=== PATIENT | female | born 1950 | race Two or more races ===

== ENCOUNTER 2023-12-13 19:25 | Inpatient (IN) | payer OTHER ==
[~2023-12-13] VITALS: Ht 154.9 cm; Wt 55.3 kg
[2023-12-13 20:00] VITALS: BP 107/57; TEMP 97.3; O2SAT 100
[2023-12-13] MEDS ORDERED: MAGNESIUM HYDROXIDE 30 ML UDC PO PRN (22:30)
[2023-12-13] MEDS ORDERED: Z GUARD REMEDY 4 OZ OINT TP PRN (22:30)
[2023-12-13] MEDS ORDERED: APIX2.5T PO (22:38)
[2023-12-13] MEDS ORDERED: ATOR80TA PO (22:38)
[2023-12-13] MEDS ORDERED: CLOP75TA15 PO (22:38)
[2023-12-13] MEDS ORDERED: GABA100C PO (22:49)
[2023-12-13] MEDS ORDERED: POLY17PO4 PO (22:49)
[2023-12-13] MEDS ORDERED: FURO-144 PO (22:49)
[2023-12-13] MEDS ORDERED: ACET-868 PO (22:49)
[2023-12-13] MEDS ORDERED: METO50TA16 PO (22:49)
[2023-12-13] MEDS ORDERED: SENN-18 PO (22:49)
[2023-12-13] MEDS ORDERED: PANT40TA49 PO (22:49)
[2023-12-14] VITALS: BP 112/64; TEMP 98.5; O2SAT 100
[2023-12-14 04:00] VITALS: BP 110/59; TEMP 98; O2SAT 99
[2023-12-14 08:00] VITALS: BP 105/65; TEMP 98.7; O2SAT 95
[2023-12-14] MEDS: PANTOPRAZOLE 40 MG VIAL IV SCH (08:31)
[2023-12-14 12:00] VITALS: BP 121/88; TEMP 97.9; O2SAT 100
[2023-12-14] MEDS ORDERED: EMPA25TA PO (14:40)
[2023-12-14] MEDS ORDERED: NITR0.4T48 SL (14:40)
[2023-12-14] MEDS ORDERED: DICL100G34 TP (14:40)
[2023-12-14] MEDS ORDERED: NALT50TA PO (14:40)
[2023-12-14] MEDS ORDERED: FAMO20TA8 PO (14:40)
[2023-12-14] MEDS ORDERED: METO-357 PO (14:40)
[2023-12-14 14:56] LABS: BASOPHILS % (AUTO) 0.7 % (0.0-2.0); EOSINOPHILS # (AUTO) 0.1 K/uL (0.0-0.7); EOSINOPHILS % (AUTO) 2.4 % (0.0-6.0); HEMATOCRIT 29 % (33-45); HEMOGLOBIN 9.1 g/dL (11.5-14.8); LYMPHOCYTES # (AUTO) 1.2 K/uL (0.8-4.8); LYMPHOCYTES % (AUTO) 23.3 % (20.0-44.0); MEAN CORPUSCULAR HEMOGLOBIN 28 PG (26.0-33.0); MEAN CORPUSCULAR HGB CONC 32 g/dl (31.0-36.0); MEAN CORPUSCULAR VOLUME 87 fL (82-100); MONOCYTES # (AUTO) 0.4 K/uL (0.1-1.30); MONOCYTES % (AUTO) 7.6 % (2.0-12.0); NEUTROPHILS # (AUTO) 3.3 K/uL (1.8-8.9); PLATELET COUNT (AUTO) 157 K/uL (150-450); RED BLOOD CELL COUNT(AUTO) 3.28 MIL/uL (4.0-5.2); RED CELL DISTRIBUTION WIDTH 18.8 % (11.5-15.0); WHITE BLOOD COUNT (AUTO) 5.1 K/uL (4.3-11.0)
[2023-12-14 15:08] LABS: MAGNESIUM 2.7 mg/dL (1.8-2.4); PHOSPHORUS 4.5 mg/dL (2.5-4.9)
[2023-12-14 15:18] LABS: CALCIUM, SERUM 8.9 mg/dL (8.5-10.1); CARBON DIOXIDE 26 mmol/L (21-32); CHLORIDE 97 mmol/L (98-107); CREATININE 1.7 mg/dL (0.6-1.3); GLUCOSE 73 mg/dL (74-106); POTASSIUM 4.8 mmol/L (3.5-5.1); SODIUM SERUM 133 mmol/L (136-145); UREA NITROGEN, BLOOD 24 mg/dL (7-18)
[2023-12-14 15:30] LABS: ALANINE AMINOTRANSFERASE 31 U/L (12-78); ALBUMIN 3.4 g/dL (3.4-5.0); ALKALINE PHOSPHATASE 80 U/L (46-116); ASPARTATE AMINOTRANSFERASE 41 U/L (15-37); BILIRUBIN,TOTAL 1.1 mg/dL (0.2-1.0); TOTAL PROTEIN, SERUM 7.1 g/dL (6.4-8.2)
[2023-12-14 16:00] VITALS: BP 108/69; TEMP 97.1; O2SAT 95
[2023-12-14 20:00] VITALS: BP 110/69; TEMP 97.5; O2SAT 97
[2023-12-14] MEDS: HYDROMORPHONE 1 MG/1 ML DISP.SYRIN IV PRN (22:26)
[2023-12-15] VITALS: BP 112/68; TEMP 97.5; O2SAT 97
[2023-12-15 04:00] VITALS: BP 112/83; TEMP 98.5; O2SAT 98
[2023-12-15] MEDS: ACETAMINOPHEN 325 MG TABLET PO PRN (07:48)
[2023-12-15 07:54] LABS: BASOPHILS % (AUTO) 0.7 % (0.0-2.0); EOSINOPHILS # (AUTO) 0.3 K/uL (0.0-0.7); EOSINOPHILS % (AUTO) 7.2 % (0.0-6.0); HEMATOCRIT 25 % (33-45); LYMPHOCYTES % (AUTO) 22.3 % (20.0-44.0); MEAN CORPUSCULAR HEMOGLOBIN 27 PG (26.0-33.0); MEAN CORPUSCULAR HGB CONC 32 g/dl (31.0-36.0); MEAN CORPUSCULAR VOLUME 86 fL (82-100); MONOCYTES # (AUTO) 0.5 K/uL (0.1-1.30); MONOCYTES % (AUTO) 11.5 % (2.0-12.0); NEUTROPHILS # (AUTO) 2.5 K/uL (1.8-8.9); NEUTROPHILS % (AUTO) 58.3 % (43.0-81.0); PLATELET COUNT (AUTO) 141 K/uL (150-450); RED BLOOD CELL COUNT(AUTO) 2.93 MIL/uL (4.0-5.2); RED CELL DISTRIBUTION WIDTH 18.5 % (11.5-15.0); WHITE BLOOD COUNT (AUTO) 4.3 K/uL (4.3-11.0)
[2023-12-15 08:00] VITALS: BP 111/81; TEMP 97.9; O2SAT 98
[2023-12-15 08:13] LABS: ALANINE AMINOTRANSFERASE 27 U/L (12-78); ALBUMIN 2.8 g/dL (3.4-5.0); ALKALINE PHOSPHATASE 72 U/L (46-116); ASPARTATE AMINOTRANSFERASE 31 U/L (15-37); BILIRUBIN,TOTAL 0.8 mg/dL (0.2-1.0); CALCIUM, SERUM 8.2 mg/dL (8.5-10.1); CARBON DIOXIDE 28 mmol/L (21-32); CHLORIDE 101 mmol/L (98-107); CREATININE 1.4 mg/dL (0.6-1.3); GLUCOSE 80 mg/dL (74-106); POTASSIUM 4.3 mmol/L (3.5-5.1); SODIUM SERUM 133 mmol/L (136-145); TOTAL PROTEIN, SERUM 6.1 g/dL (6.4-8.2); UREA NITROGEN, BLOOD 20 mg/dL (7-18)
[2023-12-15 08:24] LABS: MAGNESIUM 2.5 mg/dL (1.8-2.4); PHOSPHORUS 3.9 mg/dL (2.5-4.9)
[2023-12-15] MEDS ORDERED: Medication Not On Formulary EA (Naltrexone Hcl 50 MG) PO SCH (09:00)
[2023-12-15] MEDS ORDERED: FUROSEMIDE 20 MG/2 ML VIAL IV SCH (09:00)
[2023-12-15] MEDS: FAMOTIDINE (20 MG) 20 MG TABLET PO SCH (09:41)
[2023-12-15] MEDS: CLOPIDOGREL BISULFATE 75 MG TABLET PO SCH (09:41)
[2023-12-15] MEDS: APIXABAN 2.5 MG TABLET PO SCH (09:41)
[2023-12-15] MEDS: METOPROLOL SUCCINATE 50 MG TAB.SR.24H PO SCH (09:42)
[2023-12-15 09:53] LABS: THYROID STIMULATING HORMONE 2.87 uIU/mL (0.358-3.74)
[2023-12-15] MEDS: EMPAGLIFLOZIN 25 MG TABLET PO SCH (10:05)
[2023-12-15 12:00] VITALS: BP 106/72; TEMP 97.9; O2SAT 100
[2023-12-15] MEDS: IV NS 0.9% 1,000 ML IV PRN (15:54)
[2023-12-15 16:00] VITALS: BP 99/59; TEMP 97.7; O2SAT 98
[2023-12-15 19:41] LABS: CREATININE, URINE 58.5 MG/DL (30.0-125.0); URINE TOTAL PROTEIN 16.3 mg/dL (0-11.9)
[2023-12-15 20:00] VITALS: BP 101/71; TEMP 98.1; O2SAT 99
[2023-12-15 20:41] LABS: APPEARANCE,URINE CLEAR (CLEAR); BILIRUBIN,URINE NEGATIVE (NEGATIVE); BLOOD, URINE NEGATIVE Ery/uL (NEGATIVE); COLOR,URINE YELLOW (YELLOW); KETONES,URINE NEGATIVE (NEGATIVE); LEUKOCYTE ESTERASE ,URINE TRACE (NEGATIVE); NITRITE, URINE NEGATIVE (NEGATIVE); PROTEIN,URINE NEGATIVE (NEGATIVE); UGLUCOSE 3+ mg/dL (NEGATIVE)
[2023-12-15 21:34] LABS: ADD URINE CULTURE NO; BACTERIA,URINE 1+ /HPF (None Seen); MUCUS,URINE Few /LPF (None Seen); RBC,URINE 0-2 /HPF (0-2)
[2023-12-15 21:41] LABS: EOSINOPHIL,URINE RARE
[2023-12-15] MEDS: GABAPENTIN 100 MG CAPSULE PO SCH (22:37)
[2023-12-16] VITALS: BP 96/73; TEMP 98; O2SAT 98
[2023-12-16 04:00] VITALS: BP 101/60; TEMP 98.1; O2SAT 98
[2023-12-16 07:26] LABS: BASOPHILS % (AUTO) 0.7 % (0.0-2.0); EOSINOPHILS # (AUTO) 0.3 K/uL (0.0-0.7); EOSINOPHILS % (AUTO) 7.6 % (0.0-6.0); HEMATOCRIT 26 % (33-45); HEMOGLOBIN 8.2 g/dL (11.5-14.8); LYMPHOCYTES # (AUTO) 0.8 K/uL (0.8-4.8); LYMPHOCYTES % (AUTO) 20.6 % (20.0-44.0); MEAN CORPUSCULAR HEMOGLOBIN 28 PG (26.0-33.0); MEAN CORPUSCULAR HGB CONC 32 g/dl (31.0-36.0); MEAN CORPUSCULAR VOLUME 87 fL (82-100); MONOCYTES # (AUTO) 0.5 K/uL (0.1-1.30); MONOCYTES % (AUTO) 12.1 % (2.0-12.0); NEUTROPHILS # (AUTO) 2.2 K/uL (1.8-8.9); PLATELET COUNT (AUTO) 141 K/uL (150-450); RED BLOOD CELL COUNT(AUTO) 2.98 MIL/uL (4.0-5.2); RED CELL DISTRIBUTION WIDTH 18.8 % (11.5-15.0); WHITE BLOOD COUNT (AUTO) 3.8 K/uL (4.3-11.0)
[2023-12-16 07:45] LABS: CREATINE KINASE, TOTAL 110 U/L (26-192)
[2023-12-16 07:47] LABS: ALANINE AMINOTRANSFERASE 30 U/L (12-78); ALBUMIN 2.9 g/dL (3.4-5.0); ALKALINE PHOSPHATASE 76 U/L (46-116); ASPARTATE AMINOTRANSFERASE 25 U/L (15-37); BILIRUBIN,TOTAL 0.5 mg/dL (0.2-1.0); CALCIUM, SERUM 8.6 mg/dL (8.5-10.1); CARBON DIOXIDE 23 mmol/L (21-32); CHLORIDE 102 mmol/L (98-107); CREATININE 1.4 mg/dL (0.6-1.3); GLUCOSE 102 mg/dL (74-106); MAGNESIUM 2.7 mg/dL (1.8-2.4); PHOSPHORUS 3.9 mg/dL (2.5-4.9); SODIUM SERUM 135 mmol/L (136-145); TOTAL PROTEIN, SERUM 6.4 g/dL (6.4-8.2); UREA NITROGEN, BLOOD 17 mg/dL (7-18)
[2023-12-16 08:00] VITALS: BP 111/78; TEMP 97.6; O2SAT 95
[2023-12-16] MEDS: ATORVASTATIN 40 MG TABLET PO SCH (08:37)
[2023-12-16] MEDS: PANTOPRAZOLE 40 MG TABLET.DR PO SCH (08:37)
[2023-12-16 12:00] VITALS: BP 111/82; TEMP 97.7; O2SAT 98
[2023-12-16] MEDS: METOPROLOL TARTRATE 50 MG TABLET PO ONE (13:10)
[2023-12-16] MEDS ORDERED: CT SWABBABLE VALVE TRANS SET 1 EA INFUS.SET MC ONE (14:52)
[2023-12-16] MEDS ORDERED: IV NS 0.9% 250 ML IV ONE (14:52)
[2023-12-16] MEDS ORDERED: IOHEXOL-350 100 ML VIAL IV ONE (14:52)
[2023-12-16] MEDS ORDERED: METOPROLOL TARTRATE INJ 5 MG/5 ML AMPUL ONE (15:09)
[2023-12-16] MEDS ORDERED: NITROGLYCERIN 0.4 MG/TAB BOTTLE ONE (15:09)
[2023-12-16] MEDS: METOPROLOL TARTRATE INJ 5 MG/5 ML AMPUL IVP PRN ×2 (15:18→15:20)
[2023-12-16] MEDS: NITROGLYCERIN 0.4 MG/TAB BOTTLE SL ONE (15:39)
[2023-12-16 16:00] VITALS: BP 106/70; TEMP 97.5; O2SAT 99
[2023-12-16] MEDS: PANTOPRAZOLE 40 MG VIAL IV SCH (19:58)
[2023-12-16 20:00] VITALS: BP 108/62; TEMP 97.3; O2SAT 98
[2023-12-16] MEDS: CEFEPIME 1 GM in IV D5W 50 ML IV SCH (20:20)
[2023-12-17] VITALS: BP 106/86; TEMP 97.6; O2SAT 100
[2023-12-17 06:29] VITALS: BP_SYST 103; BP_SYST 105; BP_SYST 94; BP_DIAS 64; BP_DIAS 71; BP_DIAS 75
[2023-12-17 08:00] VITALS: BP 112/64; TEMP 97.9; O2SAT 98
[2023-12-17 10:08] LABS: *SPE A/G RATIO 0.9 (0.7-1.7); *SPE ALPHA-1-GLOBULIN 0.3 g/dL (0.0-0.4); *SPE ALPHA-2-GLOBULIN 0.7 g/dL (0.4-1.0); *SPE BETA GLOBULIN 0.8 g/dL (0.7-1.3); *SPE GLOBULIN, TOTAL 3.2 g/dL (2.2-3.9); *SPE M-SPIKE Not Observed g/dL (Not Observed); *SPE PROTEIN TOTAL 6.2 g/dL (6.0-8.5); *SPEGAMMA GLOBULIN 1.3 g/dL (0.4-1.8)
[2023-12-17 12:00] VITALS: BP 94/62; TEMP 98.5; O2SAT 97
[2023-12-17 13:09] LABS: PTH, INTACT 88 pg/mL (15-65)
[2023-12-17 16:00] VITALS: BP 102/68; TEMP 98.9; O2SAT 100
[2023-12-17 18:04] LABS: CALCIUM, SERUM 8.7 mg/dL (8.5-10.1); CARBON DIOXIDE 22 mmol/L (21-32); CHLORIDE 100 mmol/L (98-107); CREATININE 1.4 mg/dL (0.6-1.3); GLUCOSE 128 mg/dL (74-106); UREA NITROGEN, BLOOD 17 mg/dL (7-18)
[2023-12-17 20:00] VITALS: BP 104/59; TEMP 97.5; O2SAT 98
[2023-12-17] MEDS: MAG HYDROX/AL HYDROX/SIMETH 30 ML UDC PO PRN (20:20)
[2023-12-17 21:03] LABS: BASOPHILS % (AUTO) 0.5 % (0.0-2.0); EOSINOPHILS # (AUTO) 0.1 K/uL (0.0-0.7); EOSINOPHILS % (AUTO) 2.9 % (0.0-6.0); HEMATOCRIT 32 % (33-45); HEMOGLOBIN 9.8 g/dL (11.5-14.8); LYMPHOCYTES % (AUTO) 21.8 % (20.0-44.0); MEAN CORPUSCULAR HEMOGLOBIN 27 PG (26.0-33.0); MEAN CORPUSCULAR HGB CONC 31 g/dl (31.0-36.0); MEAN CORPUSCULAR VOLUME 89 fL (82-100); MONOCYTES # (AUTO) 0.6 K/uL (0.1-1.30); MONOCYTES % (AUTO) 13.5 % (2.0-12.0); NEUTROPHILS # (AUTO) 2.9 K/uL (1.8-8.9); NEUTROPHILS % (AUTO) 61.3 % (43.0-81.0); PLATELET COUNT (AUTO) 153 K/uL (150-450); RED BLOOD CELL COUNT(AUTO) 3.58 MIL/uL (4.0-5.2); RED CELL DISTRIBUTION WIDTH 19.3 % (11.5-15.0); WHITE BLOOD COUNT (AUTO) 4.8 K/uL (4.3-11.0)
[2023-12-17 21:29] LABS: SODIUM SERUM 133 mmol/L (136-145)
[2023-12-17 21:30] LABS: POTASSIUM 4.9 mmol/L (3.5-5.1)
[2023-12-17] MEDS ORDERED: ALBUTEROL FS 2.5 MG/0.5 ML VIAL.NEB NEB PRN (23:30)
[2023-12-18] VITALS (11 sets, daily range): BP systolic 102–129; BP diastolic 63–84; TEMP 97–97.9; O2SAT 95–100
[2023-12-18 08:02] LABS: BASOPHILS % (AUTO) 0.9 % (0.0-2.0); EOSINOPHILS # (AUTO) 0.1 K/uL (0.0-0.7); EOSINOPHILS % (AUTO) 1.9 % (0.0-6.0); HEMATOCRIT 30 % (33-45); HEMOGLOBIN 8.8 g/dL (11.5-14.8); LYMPHOCYTES % (AUTO) 24.8 % (20.0-44.0); MEAN CORPUSCULAR HEMOGLOBIN 27 PG (26.0-33.0); MEAN CORPUSCULAR HGB CONC 29 g/dl (31.0-36.0); MEAN CORPUSCULAR VOLUME 95 fL (82-100); MONOCYTES # (AUTO) 0.5 K/uL (0.1-1.30); MONOCYTES % (AUTO) 13.2 % (2.0-12.0); NEUTROPHILS # (AUTO) 2.3 K/uL (1.8-8.9); NEUTROPHILS % (AUTO) 59.2 % (43.0-81.0); PLATELET COUNT (AUTO) 144 K/uL (150-450); WHITE BLOOD COUNT (AUTO) 3.8 K/uL (4.3-11.0)
[2023-12-18] MEDS ORDERED: NITROGLYCERIN 30 GM TUBE TP PRN (09:00)
[2023-12-18 09:06] LABS: ALANINE AMINOTRANSFERASE 34 U/L (12-78); ALBUMIN 2.7 g/dL (3.4-5.0); ALKALINE PHOSPHATASE 75 U/L (46-116); ASPARTATE AMINOTRANSFERASE 27 U/L (15-37); BILIRUBIN,TOTAL 0.8 mg/dL (0.2-1.0); CARBON DIOXIDE 17 mmol/L (21-32); CHLORIDE 101 mmol/L (98-107); CREATININE 1.4 mg/dL (0.6-1.3); GLUCOSE 96 mg/dL (74-106); MAGNESIUM 2.6 mg/dL (1.8-2.4); NT-PRO BNP 7793 pg/mL (0-125); POTASSIUM 4.8 mmol/L (3.5-5.1); SODIUM SERUM 130 mmol/L (136-145); TOTAL PROTEIN, SERUM 6.7 g/dL (6.4-8.2)
[2023-12-18] MEDS: ENSURE ENLIVE 237 ML LIQUID (VANILLA) PO SCH (09:16)
[2023-12-18 09:24] LABS: CALCIUM, SERUM 8.7 mg/dL (8.5-10.1); UREA NITROGEN, BLOOD 19 mg/dL (7-18)
[2023-12-18] MEDS ORDERED: NITROGLYCERIN PACKET 1 GM PACKET TOP PRN (10:00)
[2023-12-18] MEDS ORDERED: DIATR MEGLU/DIATRIZOATE SODIUM 30 ML BOTTLE (GASTROGRAPHIN) ONE (10:05)
[2023-12-18] MEDS: DICYCLOMINE HCL 10 MG CAPSULE PO SCH (12:00)
[2023-12-18] MEDS: ONDANSETRON HCL/PF 4 MG/2 ML VIAL IVP PRN (12:17)
[2023-12-18] MEDS: FUROSEMIDE 40 MG/4 ML VIAL IV SCH (15:26)
[2023-12-18 15:29] LABS: LACTIC ACID 2.7 mmol/L (0.4-2.0)
[2023-12-18] MEDS: IV NS 0.9% 1,000 ML IV SCH (18:27)
[2023-12-18 18:41] LABS: BILIRUBIN,DIRECT 0.3 mg/dL (0.0-0.2)
[2023-12-18] MEDS: ZOSYN IVPB 2.25 G in IV D5W 50ml IV SCH (18:50)
[2023-12-18] MEDS: PANTOPRAZOLE 40 MG VIAL IV SCH (21:14)
[2023-12-18] MEDS ORDERED: IOHEXOL-350 100 ML VIAL IV ONE (21:51)
[2023-12-18] MEDS ORDERED: IV NS 0.9% 500 ML IV ONE (21:51)
[2023-12-18] MEDS: SUCRALFATE 1 G/10 ML UDC GT SCH (23:15)
[2023-12-19] VITALS: BP 102/58; TEMP 97.9; O2SAT 97
[2023-12-19 01:00] VITALS: BP 102/58; O2SAT 97
[2023-12-19 04:00] VITALS: BP 115/81; TEMP 98.1; O2SAT 97
[2023-12-19 04:16] LABS: BASOPHILS % (AUTO) 0.9 % (0.0-2.0); EOSINOPHILS # (AUTO) 0.1 K/uL (0.0-0.7); EOSINOPHILS % (AUTO) 2.5 % (0.0-6.0); HEMATOCRIT 26 % (33-45); HEMOGLOBIN 8.2 g/dL (11.5-14.8); LYMPHOCYTES # (AUTO) 0.8 K/uL (0.8-4.8); LYMPHOCYTES % (AUTO) 19.6 % (20.0-44.0); MEAN CORPUSCULAR HEMOGLOBIN 27 PG (26.0-33.0); MEAN CORPUSCULAR HGB CONC 32 g/dl (31.0-36.0); MEAN CORPUSCULAR VOLUME 86 fL (82-100); MONOCYTES # (AUTO) 0.4 K/uL (0.1-1.30); MONOCYTES % (AUTO) 9.6 % (2.0-12.0); NEUTROPHILS # (AUTO) 2.6 K/uL (1.8-8.9); NEUTROPHILS % (AUTO) 67.4 % (43.0-81.0); PLATELET COUNT (AUTO) 139 K/uL (150-450); RED BLOOD CELL COUNT(AUTO) 3.01 MIL/uL (4.0-5.2); WHITE BLOOD COUNT (AUTO) 3.9 K/uL (4.3-11.0)
[2023-12-19 08:00] VITALS: BP 112/79; TEMP 97.6; O2SAT 97
[2023-12-19 08:26] LABS: ALANINE AMINOTRANSFERASE 37 U/L (12-78); ALKALINE PHOSPHATASE 69 U/L (46-116); ASPARTATE AMINOTRANSFERASE 29 U/L (15-37); BILIRUBIN,TOTAL 0.9 mg/dL (0.2-1.0); CALCIUM, SERUM 8.7 mg/dL (8.5-10.1); CARBON DIOXIDE 21 mmol/L (21-32); CHLORIDE 101 mmol/L (98-107); CREATININE 1.7 mg/dL (0.6-1.3); GLUCOSE 97 mg/dL (74-106); MAGNESIUM 2.1 mg/dL (1.8-2.4); PHOSPHORUS 4.4 mg/dL (2.5-4.9); POTASSIUM 3.8 mmol/L (3.5-5.1); SODIUM SERUM 135 mmol/L (136-145); TOTAL PROTEIN, SERUM 6.5 g/dL (6.4-8.2); UREA NITROGEN, BLOOD 21 mg/dL (7-18)
[2023-12-19 12:00] VITALS: BP 131/83; TEMP 98.1; O2SAT 97
[2023-12-19] MEDS ORDERED: ATORVASTATIN 40 MG TABLET PO SCH (21:00)
== END 2023-12-19 16:50 | disposition home or self-care (01) | DRG 48 ==
LOC: TELE1 19:27 → ICU 12-18 17:37 → TELE-TD 12-19 04:12 → TELE1 12-19 15:02
DX: G90.8 Other disorders of autonomic nervous system (principal); I21.A1 Myocardial infarction type 2; N17.9 Acute kidney failure, unspecified; I13.0 Hypertensive heart and chronic kidney disease with heart failure and stage 1 through stage 4 chronic kidney disease, or unspecified chronic kidney disease; I50.42 Chronic combined systolic (congestive) and diastolic (congestive) heart failure; R18.8 Other ascites; D64.9 Anemia, unspecified; I48.91 Unspecified atrial fibrillation; N18.9 Chronic kidney disease, unspecified; E78.5 Hyperlipidemia, unspecified; Z79.01 Long term (current) use of anticoagulants; Z90.49 Acquired absence of other specified parts of digestive tract; Z95.0 Presence of cardiac pacemaker; Z95.5 Presence of coronary angioplasty implant and graft; I25.2 Old myocardial infarction; I25.10 Atherosclerotic heart disease of native coronary artery without angina pectoris; K57.30 Diverticulosis of large intestine without perforation or abscess without bleeding; Z76.5 Malingerer [conscious simulation]; Z88.5 Allergy status to narcotic agent; K21.9 Gastro-esophageal reflux disease without esophagitis; R93.5 Abnormal findings on diagnostic imaging of other abdominal regions, including retroperitoneum; R10.9 Unspecified abdominal pain; R74.01 Elevation of levels of liver transaminase levels; N13.9 Obstructive and reflux uropathy, unspecified
CPT/HCPCS: 36415; 71045-TC; 74018; 75574; 76700-TC; 80048-TC; 80053-TC; 80061-TC; 81001; 82248-TC; 82550-TC; 82570-TC; 82728-TC; 82962-TC; 83540-TC; 83605-TC; 83690-TC; 83735-TC; 83880; 83970; 84100-TC; 84155; 84165; 84300-TC; 84439-TC; 84443-TC; 84484-TC; 85025-TC; 93307-TC; 97110-TC; 97112-TC; 97116-TC; 97530-TC; A4223; G0378; J0692; J1170; J1940; J2405; J2470; J2543; J3490; J7030; J7040; J7050; J7060; Q9963; Q9967

== ENCOUNTER 2024-05-18 15:44 | Inpatient (IN) | payer OTHER ==
[~2024-05-18] VITALS: Ht 160 cm; Wt 62.1 kg
[~2024-05-18 15:44] MED LIST: APIX2.5T PO; ATOR80TA PO; CLOP75TA15 PO; DICL100G34 TP; EMPA25TA PO; FAMO20TA8 PO; FURO-144 PO; GABA100C PO; METO-357 PO; NALT50TA PO; NITR0.4T48 SL; SENN-18 PO
[2024-05-18 16:54] LABS: LYMPHOCYTES # (AUTO) 0.7 K/uL (0.8-4.8); MONOCYTES # (AUTO) 0.4 K/uL (0.1-1.30); NEUTROPHILS # (AUTO) 3.2 K/uL (1.8-8.9); WHITE BLOOD COUNT (AUTO) 4.3 K/uL (4.3-11.0)
[2024-05-18 17:02] LABS: CALCIUM, SERUM 8.9 mg/dL (8.5-10.1); CARBON DIOXIDE 26 mmol/L (21-32); CHLORIDE 91 mmol/L (98-107); CREATININE 2.6 mg/dL (0.6-1.3); GLUCOSE 160 mg/dL (74-106); SODIUM SERUM 130 mmol/L (136-145); UREA NITROGEN, BLOOD 27 mg/dL (7-18)
[2024-05-18 17:03] LABS: BASOPHILS % (AUTO) 0.5 % (0.0-2.0); EOSINOPHILS % (AUTO) 0.9 % (0.0-6.0); HEMATOCRIT 36 % (33-45); LYMPHOCYTES % (AUTO) 15.4 % (20.0-44.0); MEAN CORPUSCULAR HEMOGLOBIN 37 PG (26.0-33.0); MEAN CORPUSCULAR HGB CONC 33 g/dl (31.0-36.0); MEAN CORPUSCULAR VOLUME 112 fL (82-100); MONOCYTES % (AUTO) 10.2 % (2.0-12.0); RED BLOOD CELL COUNT(AUTO) 3.26 MIL/uL (4.0-5.2); RED CELL DISTRIBUTION WIDTH 20.4 % (11.5-15.0)
[2024-05-18 17:24] LABS: PLATELET COUNT (AUTO) 31 K/uL (150-450)
[2024-05-18 17:43] LABS: BASOPHILS % (MANUAL) 0 % (0.0-2.0); EOSINOPHILS % (MANUAL) 1 % (0-4); LYMPHOCYTES % (MANUAL) 16 % (16-48); MONOCYTES % (MANUAL) 7 % (0-11.0); NEUTROPHILS % (MANUAL) 79 (42-76); PLATELET ESTIMATE DECREASED
[2024-05-18 17:44] LABS: ANISOCYTOSIS 2+
[2024-05-18] MEDS ORDERED: BUME1TAB8 PO (19:11)
[2024-05-18] MEDS ORDERED: DICY10CA37 PO (19:11)
[2024-05-18] MEDS ORDERED: EMPA10TA PO (19:11)
[2024-05-18] MEDS ORDERED: MULT-754 PO (19:11)
[2024-05-18] MEDS ORDERED: PSYL660P17 PO (19:11)
[2024-05-18] MEDS ORDERED: POLY17PO4 PO (19:11)
[2024-05-18] MEDS ORDERED: PANT40TA49 PO (19:11)
[2024-05-18] MEDS ORDERED: MIRT-90 PO (19:11)
[2024-05-18] MEDS ORDERED: MAGNESIUM HYDROXIDE 30 ML UDC PO PRN (19:30)
[2024-05-18] MEDS ORDERED: MIDODRINE HCL (5MG) 5 MG TABLET ONE (20:07)
[2024-05-18] MEDS: MIDODRINE HCL (5MG) 5 MG TABLET PO ONE (20:09)
[2024-05-18] MEDS ORDERED: ACETAMINOPHEN 325 MG TABLET ONE (21:40)
[2024-05-18] MEDS: ACETAMINOPHEN 325 MG TABLET PO PRN (21:46)
[2024-05-19] VITALS: BP 99/77; TEMP 97; O2SAT 100
[2024-05-19 04:00] VITALS: BP 93/70; TEMP 97; O2SAT 100
[2024-05-19 08:00] VITALS: BP 99/73; TEMP 98.1; O2SAT 100
[2024-05-19] MEDS: PANTOPRAZOLE 40 MG VIAL IV SCH (08:07)
[2024-05-19] MEDS: MIDODRINE HCL (5MG) 5 MG TABLET PO SCH (08:18)
[2024-05-19 09:08] LABS: CALCIUM, SERUM 9.1 mg/dL (8.5-10.1); CREATININE 2.7 mg/dL (0.6-1.3); MAGNESIUM 2.3 mg/dL (1.8-2.4); PHOSPHORUS 4.3 mg/dL (2.5-4.9)
[2024-05-19 09:14] LABS: THYROID STIMULATING HORMONE 32.24 uIU/mL (0.358-3.74)
[2024-05-19 09:26] LABS: BASOPHILS % (AUTO) 0.6 % (0.0-2.0); EOSINOPHILS # (AUTO) 0.1 K/uL (0.0-0.7); EOSINOPHILS % (AUTO) 1.4 % (0.0-6.0); HEMATOCRIT 37 % (33-45); HEMOGLOBIN 12.2 g/dL (11.5-14.8); LYMPHOCYTES # (AUTO) 0.8 K/uL (0.8-4.8); LYMPHOCYTES % (AUTO) 20.3 % (20.0-44.0); MEAN CORPUSCULAR HEMOGLOBIN 37 PG (26.0-33.0); MEAN CORPUSCULAR HGB CONC 33 g/dl (31.0-36.0); MEAN CORPUSCULAR VOLUME 111 fL (82-100); MONOCYTES # (AUTO) 0.8 K/uL (0.1-1.30); NEUTROPHILS # (AUTO) 2.2 K/uL (1.8-8.9); NEUTROPHILS % (AUTO) 57.7 % (43.0-81.0); RED BLOOD CELL COUNT(AUTO) 3.29 MIL/uL (4.0-5.2); RED CELL DISTRIBUTION WIDTH 20.3 % (11.5-15.0); WHITE BLOOD COUNT (AUTO) 3.8 K/uL (4.3-11.0)
[2024-05-19 09:28] LABS: PLATELET COUNT (AUTO) 38 K/uL (150-450)
[2024-05-19 11:01] LABS: EOSINOPHILS % (MANUAL) 1 % (0-4); LYMPHOCYTES % (MANUAL) 21 % (16-48); MONOCYTES % (MANUAL) 14 % (0-11.0)
[2024-05-19 11:02] LABS: ANISOCYTOSIS 2+; NEUTROPHILS % (MANUAL) 64 (42-76); PLATELET ESTIMATE DECREASED; TARGET CELLS 1+
[2024-05-19 12:00] VITALS: BP 101/68; TEMP 97.3; O2SAT 100
[2024-05-19 16:00] VITALS: BP 101/85; TEMP 97.9; O2SAT 97
[2024-05-19 20:00] VITALS: BP 90/62; TEMP 97.9; O2SAT 100
[2024-05-20] VITALS: BP 110/79; TEMP 97; O2SAT 100
[2024-05-20 02:29] LABS: BASOPHILS % (AUTO) 0.3 % (0.0-2.0); EOSINOPHILS # (AUTO) 0.1 K/uL (0.0-0.7); EOSINOPHILS % (AUTO) 2.6 % (0.0-6.0); HEMATOCRIT 34 % (33-45); HEMOGLOBIN 11.6 g/dL (11.5-14.8); LYMPHOCYTES # (AUTO) 0.5 K/uL (0.8-4.8); LYMPHOCYTES % (AUTO) 14.9 % (20.0-44.0); MEAN CORPUSCULAR HEMOGLOBIN 38 PG (26.0-33.0); MEAN CORPUSCULAR HGB CONC 34 g/dl (31.0-36.0); MEAN CORPUSCULAR VOLUME 111 fL (82-100); MONOCYTES # (AUTO) 0.5 K/uL (0.1-1.30); MONOCYTES % (AUTO) 14.1 % (2.0-12.0); NEUTROPHILS # (AUTO) 2.3 K/uL (1.8-8.9); NEUTROPHILS % (AUTO) 68.1 % (43.0-81.0); RED BLOOD CELL COUNT(AUTO) 3.07 MIL/uL (4.0-5.2); RED CELL DISTRIBUTION WIDTH 19.8 % (11.5-15.0); WHITE BLOOD COUNT (AUTO) 3.4 K/uL (4.3-11.0)
[2024-05-20 02:40] LABS: CALCIUM, SERUM 8.8 mg/dL (8.5-10.1); CREATININE 2.9 mg/dL (0.6-1.3); MAGNESIUM 2.3 mg/dL (1.8-2.4); PHOSPHORUS 4.8 mg/dL (2.5-4.9)
[2024-05-20] MEDS: ASPIRIN 81 MG TAB.CHEW PO SCH (02:53)
[2024-05-20 03:00] LABS: PLATELET COUNT (AUTO) 44 K/uL (150-450)
[2024-05-20 04:00] VITALS: BP 100/71; TEMP 97.9; O2SAT 100
[2024-05-20 06:23] LABS: BASOPHILS % (MANUAL) 0 % (0.0-2.0); EOSINOPHILS % (MANUAL) 3 % (0-4); LYMPHOCYTES % (MANUAL) 21 % (16-48); MONOCYTES % (MANUAL) 12 % (0-11.0); NEUTROPHILS % (MANUAL) 64 (42-76); PLATELET ESTIMATE DECREASED
[2024-05-20 06:26] LABS: ANISOCYTOSIS 1+; TARGET CELLS 1+
[2024-05-20 08:00] VITALS: BP 108/74; TEMP 97.4; O2SAT 100
[2024-05-20] MEDS: MIDODRINE HCL (5MG) 5 MG TABLET PO SCH (08:43)
[2024-05-20] MEDS: CALCIUM CARBONATE 500 MG TAB.CHEW PO SCH (08:54)
[2024-05-20] MEDS ORDERED: PANTOPRAZOLE 40 MG TABLET.DR PO SCH (09:00)
[2024-05-20 12:00] VITALS: BP 97/81; TEMP 97.4; O2SAT 98
[2024-05-20] MEDS: ONDANSETRON HCL/PF 4 MG/2 ML VIAL IVP PRN (14:25)
[2024-05-20 16:00] VITALS: BP 103/84; O2SAT 98
[2024-05-20] MEDS: ALBUMIN 25% 25 GM in PREMIX 1 EA IV PRN (18:45)
[2024-05-20 20:00] VITALS: BP 100/64; TEMP 97.5; O2SAT 100
[2024-05-20] MEDS: MAG HYDROX/AL HYDROX/SIMETH 30 ML UDC PO PRN (22:39)
[2024-05-21] VITALS: BP 109/71; TEMP 97.5; O2SAT 100
[2024-05-21 04:00] VITALS: BP 94/60; TEMP 97.3; O2SAT 96
[2024-05-21 07:50] LABS: BASOPHILS % (AUTO) 0.5 % (0.0-2.0); HEMATOCRIT 35 % (33-45); HEMOGLOBIN 11.5 g/dL (11.5-14.8); LYMPHOCYTES # (AUTO) 0.5 K/uL (0.8-4.8); LYMPHOCYTES % (AUTO) 14.4 % (20.0-44.0); MEAN CORPUSCULAR HEMOGLOBIN 37 PG (26.0-33.0); MEAN CORPUSCULAR HGB CONC 33 g/dl (31.0-36.0); MEAN CORPUSCULAR VOLUME 112 fL (82-100); MONOCYTES # (AUTO) 0.5 K/uL (0.1-1.30); MONOCYTES % (AUTO) 13.8 % (2.0-12.0); NEUTROPHILS # (AUTO) 2.4 K/uL (1.8-8.9); NEUTROPHILS % (AUTO) 70.3 % (43.0-81.0); RED BLOOD CELL COUNT(AUTO) 3.09 MIL/uL (4.0-5.2); RED CELL DISTRIBUTION WIDTH 19.8 % (11.5-15.0); WHITE BLOOD COUNT (AUTO) 3.5 K/uL (4.3-11.0)
[2024-05-21 08:00] VITALS: BP 94/60; TEMP 97.9; O2SAT 96
[2024-05-21 08:13] LABS: PLATELET COUNT (AUTO) 31 K/uL (150-450)
[2024-05-21 08:31] LABS: CALCIUM, SERUM 9.5 mg/dL (8.5-10.1); CREATININE 2.5 mg/dL (0.6-1.3); MAGNESIUM 2.4 mg/dL (1.8-2.4); PHOSPHORUS 3.9 mg/dL (2.5-4.9); POTASSIUM 4.2 mmol/L (3.5-5.1)
[2024-05-21] MEDS: ASPIRIN 81 MG TAB.CHEW PO SCH (09:00)
[2024-05-21 09:56] LABS: ANISOCYTOSIS 2+; EOSINOPHILS % (MANUAL) 1 % (0-4); LYMPHOCYTES % (MANUAL) 11 % (16-48); MONOCYTES % (MANUAL) 10 % (0-11.0); NEUTROPHILS % (MANUAL) 78 (42-76); PLATELET ESTIMATE DECREASED
[2024-05-21 09:57] LABS: TARGET CELLS 1+
[2024-05-21 12:00] VITALS: BP 92/64; TEMP 97.9; O2SAT 96
[2024-05-21 16:00] VITALS: BP 90/55; TEMP 97.5; O2SAT 96
[2024-05-21 20:00] VITALS: BP 93/59; TEMP 98.8; O2SAT 100
[2024-05-22] VITALS: BP 118/86; TEMP 98.7; O2SAT 100
[2024-05-22] MEDS: ASPIRIN 81 MG TAB.CHEW PO ONE (02:30)
[2024-05-22 04:00] VITALS: BP 92/63; TEMP 98.7; O2SAT 100
[2024-05-22] MEDS: ACETAMINOPHEN 325 MG TABLET PO PRN (06:03)
[2024-05-22 08:00] VITALS: BP 97/72; TEMP 96.1; O2SAT 100
[2024-05-22 08:08] LABS: CALCIUM, SERUM 9.9 mg/dL (8.5-10.1); POTASSIUM 4.2 mmol/L (3.5-5.1)
[2024-05-22 08:29] LABS: BASOPHILS % (AUTO) 0.4 % (0.0-2.0); EOSINOPHILS % (AUTO) 0.9 % (0.0-6.0); HEMATOCRIT 32 % (33-45); LYMPHOCYTES # (AUTO) 0.5 K/uL (0.8-4.8); LYMPHOCYTES % (AUTO) 14.6 % (20.0-44.0); MEAN CORPUSCULAR HEMOGLOBIN 37 PG (26.0-33.0); MEAN CORPUSCULAR HGB CONC 34 g/dl (31.0-36.0); MEAN CORPUSCULAR VOLUME 110 fL (82-100); MONOCYTES # (AUTO) 0.6 K/uL (0.1-1.30); MONOCYTES % (AUTO) 16.2 % (2.0-12.0); NEUTROPHILS # (AUTO) 2.4 K/uL (1.8-8.9); NEUTROPHILS % (AUTO) 67.9 % (43.0-81.0); RED BLOOD CELL COUNT(AUTO) 2.94 MIL/uL (4.0-5.2); RED CELL DISTRIBUTION WIDTH 19.3 % (11.5-15.0); WHITE BLOOD COUNT (AUTO) 3.5 K/uL (4.3-11.0)
[2024-05-22 08:46] LABS: PLATELET COUNT (AUTO) 48 K/uL (150-450)
[2024-05-22 11:04] LABS: ANISOCYTOSIS 2+; EOSINOPHILS % (MANUAL) 2 % (0-4); LYMPHOCYTES % (MANUAL) 9 % (16-48); MONOCYTES % (MANUAL) 8 % (0-11.0); NEUTROPHILS % (MANUAL) 81 (42-76); PLATELET ESTIMATE DECREASED
[2024-05-22 11:05] LABS: TARGET CELLS 1+
[2024-05-22 12:00] VITALS: BP 98/74; TEMP 97.5; O2SAT 100
[2024-05-22 16:00] VITALS: BP 107/74; TEMP 97.5; O2SAT 100
[2024-05-22] MEDS: BUMETANIDE (1 MG) 1 MG TABLET PO SCH (17:00)
[2024-05-22] MEDS: PANTOPRAZOLE 40 MG TABLET.DR PO SCH (18:49)
[2024-05-22 20:00] VITALS: BP 102/65; TEMP 98.4; O2SAT 100
[2024-05-22] MEDS: GABAPENTIN 100 MG CAPSULE PO SCH (21:35)
[2024-05-22] MEDS: ATORVASTATIN 40 MG TABLET PO SCH (21:35)
[2024-05-22] MEDS: MIRTAZAPINE 15 MG TABLET PO SCH (21:36)
[2024-05-23] VITALS (7 sets, daily range): BP systolic 95–128; BP diastolic 66–79; TEMP 95–97.9; O2SAT 98–100
[2024-05-23] MEDS: LORAZEPAM INJ 2 MG/ML VIAL IV ONE (01:27)
[2024-05-23] MEDS: METOPROLOL TARTRATE INJ 5 MG/5 ML AMPUL IVP ONE (03:35)
[2024-05-23] MEDS: METOPROLOL SUCCINATE 50 MG TAB.SR.24H PO SCH (08:26)
[2024-05-23] MEDS: DIGOXIN INJ 0.5 MG/2 ML AMPUL IV SCH (11:52)
[2024-05-23] MEDS: POLYETHYLENE GLYCOL 3350 17 GM POWD.PACK PO SCH (11:52)
[2024-05-23 16:14] LABS: CALCIUM, SERUM 9.7 mg/dL (8.5-10.1); CREATININE 3.2 mg/dL (0.6-1.3); POTASSIUM 5.3 mmol/L (3.5-5.1)
[2024-05-24] VITALS: BP 131/79; TEMP 97.5; O2SAT 100
[2024-05-24 04:00] VITALS: BP 93/60; TEMP 97.5; O2SAT 100
[2024-05-24 08:00] VITALS: BP 102/66; TEMP 97.5; O2SAT 98
[2024-05-24 12:00] VITALS: BP 113/63; TEMP 97.5; O2SAT 98
[2024-05-24] MEDS: DIGOXIN 0.125 MG TABLET PO SCH (12:18)
[2024-05-24 14:33] LABS: CALCIUM, SERUM 9.2 mg/dL (8.5-10.1); CREATININE 3.5 mg/dL (0.6-1.3); MAGNESIUM 2.7 mg/dL (1.8-2.4); PHOSPHORUS 3.7 mg/dL (2.5-4.9); POTASSIUM 4.3 mmol/L (3.5-5.1)
[2024-05-24 14:40] LABS: BASOPHILS % (AUTO) 0.2 % (0.0-2.0); EOSINOPHILS # (AUTO) 0.1 K/uL (0.0-0.7); EOSINOPHILS % (AUTO) 1.9 % (0.0-6.0); HEMATOCRIT 33 % (33-45); HEMOGLOBIN 11.2 g/dL (11.5-14.8); LYMPHOCYTES # (AUTO) 0.4 K/uL (0.8-4.8); LYMPHOCYTES % (AUTO) 11.4 % (20.0-44.0); MEAN CORPUSCULAR HEMOGLOBIN 38 PG (26.0-33.0); MEAN CORPUSCULAR HGB CONC 34 g/dl (31.0-36.0); MEAN CORPUSCULAR VOLUME 111 fL (82-100); MONOCYTES # (AUTO) 0.5 K/uL (0.1-1.30); MONOCYTES % (AUTO) 12.2 % (2.0-12.0); NEUTROPHILS # (AUTO) 2.8 K/uL (1.8-8.9); NEUTROPHILS % (AUTO) 74.3 % (43.0-81.0); RED BLOOD CELL COUNT(AUTO) 2.94 MIL/uL (4.0-5.2); RED CELL DISTRIBUTION WIDTH 20.1 % (11.5-15.0); WHITE BLOOD COUNT (AUTO) 3.7 K/uL (4.3-11.0)
[2024-05-24 14:50] LABS: PLATELET COUNT (AUTO) 37 K/uL (150-450)
[2024-05-24 16:00] VITALS: BP 107/70; TEMP 96; O2SAT 97
[2024-05-24] MEDS ORDERED: NEO/POLY-B/DEXAM OPHTH SUSP 5 ML BOTTLE EACHEYE SCH (18:00)
[2024-05-24] MEDS: NEOMY SULF/BACITRA/POLYMYXIN B 3.5 GM TUBE EACHEYE SCH (18:26)
[2024-05-24 19:18] LABS: ANISOCYTOSIS 1+; BASOPHILS % (MANUAL) 1 % (0.0-2.0); EOSINOPHILS % (MANUAL) 1 % (0-4); LYMPHOCYTES % (MANUAL) 15 % (16-48); MONOCYTES % (MANUAL) 8 % (0-11.0); NEUTROPHILS % (MANUAL) 75 (42-76); PLATELET ESTIMATE DECREASED; TARGET CELLS 2+
[2024-05-24 20:00] VITALS: BP 109/88; TEMP 97.3; O2SAT 100
[2024-05-25] VITALS: BP 111/70; TEMP 97.7; O2SAT 99
[2024-05-25 04:00] VITALS: BP 105/58; TEMP 98.2; O2SAT 97
[2024-05-25 08:00] VITALS: BP 102/59; TEMP 98; O2SAT 97
[2024-05-25] MEDS ORDERED: DIGO125T PO (09:52)
[2024-05-25] MEDS ORDERED: MIDO5TAB4 PO (09:52)
[2024-05-25 12:00] VITALS: BP 117/69; TEMP 98.8; O2SAT 100
[2024-05-25 16:00] VITALS: BP 107/79; TEMP 98.6; O2SAT 100
[2024-05-25 17:36] VITALS: BP 99/66
[2024-05-25] MEDS ORDERED: DIATR MEGLU/DIATRIZOATE SODIUM 30 ML BOTTLE (GASTROGRAPHIN) ONE (20:07)
== END 2024-05-25 20:20 | disposition home health service (06) | DRG 194 ==
LOC: ER 15:46 → TELE 19:16 → TELE1 21:51 → TELE-TD 05-19 00:01 → TELE1 05-19 10:21
PROVIDERS: ATTEND Internal Medicine
PROC: 5A1D70Z Performance of Urinary Filtration, Intermittent, Less than 6 Hours Per Day (ICD-10-PCS; principal; 2024-05-20)
DX: I13.2 Hypertensive heart and chronic kidney disease with heart failure and with stage 5 chronic kidney disease, or end stage renal disease (principal); I21.A1 Myocardial infarction type 2; D69.6 Thrombocytopenia, unspecified; J90 Pleural effusion, not elsewhere classified; N18.6 End stage renal disease; E11.22 Type 2 diabetes mellitus with diabetic chronic kidney disease; E87.1 Hypo-osmolality and hyponatremia; I50.23 Acute on chronic systolic (congestive) heart failure; E03.9 Hypothyroidism, unspecified; E78.5 Hyperlipidemia, unspecified; E87.5 Hyperkalemia; I25.10 Atherosclerotic heart disease of native coronary artery without angina pectoris; I48.91 Unspecified atrial fibrillation; Z99.2 Dependence on renal dialysis; Z95.0 Presence of cardiac pacemaker; I44.7 Left bundle-branch block, unspecified; I95.89 Other hypotension
CPT/HCPCS: 36415; 71045-TC; 74018; 74150-TC; 80048-TC; 83735-TC; 84100-TC; 84439-TC; 84443-TC; 84484-TC; 85025-TC; 86706; 87081-TC; 87340; 90935-TC; 93307-TC; 97110-TC; 97116-TC; 97530-TC; A4216; G0378; J1160; J2060; J2405; J2470; J3490; J7030; J7050; P9047; Q9963

== ENCOUNTER 2024-06-08 16:07 | Inpatient (IN) | payer OTHER ==
[~2024-06-08] VITALS: Ht 160 cm; Wt 36.3 kg
[~2024-06-08 16:07] MED LIST changes: +BUME1TAB8 PO; -DICL100G34 TP; +DICY10CA37 PO; +DIGO125T PO; +EMPA10TA PO; -EMPA25TA PO; -FAMO20TA8 PO; -FURO-144 PO; -METO-357 PO; +MIDO5TAB4 PO; +MIRT-90 PO; +MULT-754 PO; +PANT40TA49 PO; +POLY17PO4 PO; +PSYL660P17 PO; -SENN-18 PO
[2024-06-08] MEDS ORDERED: PANTOPRAZOLE 40 MG VIAL ONE (17:17)
[2024-06-08] MEDS: PANTOPRAZOLE 40 MG VIAL IV ONE (17:40)
[2024-06-08 17:48] LABS: BASOPHILS % (AUTO) 0.6 % (0.0-2.0); EOSINOPHILS # (AUTO) 0.1 K/uL (0.0-0.7); EOSINOPHILS % (AUTO) 1.2 % (0.0-6.0); HEMATOCRIT 37 % (33-45); HEMOGLOBIN 12.2 g/dL (11.5-14.8); LYMPHOCYTES # (AUTO) 1.7 K/uL (0.8-4.8); LYMPHOCYTES % (AUTO) 27.4 % (20.0-44.0); MEAN CORPUSCULAR HEMOGLOBIN 37 PG (26.0-33.0); MEAN CORPUSCULAR HGB CONC 33 g/dl (31.0-36.0); MEAN CORPUSCULAR VOLUME 111 fL (82-100); MONOCYTES # (AUTO) 0.4 K/uL (0.1-1.30); MONOCYTES % (AUTO) 5.7 % (2.0-12.0); NEUTROPHILS # (AUTO) 4.1 K/uL (1.8-8.9); NEUTROPHILS % (AUTO) 65.1 % (43.0-81.0); PLATELET COUNT (AUTO) 64 K/uL (150-450); RED CELL DISTRIBUTION WIDTH 20.8 % (11.5-15.0); WHITE BLOOD COUNT (AUTO) 6.3 K/uL (4.3-11.0)
[2024-06-08 18:01] LABS: CALCIUM, SERUM 8.4 mg/dL (8.5-10.1); CARBON DIOXIDE 33 mmol/L (21-32); CHLORIDE 95 mmol/L (98-107); CREATININE 1.5 mg/dL (0.6-1.3); GLUCOSE 166 mg/dL (74-106); POTASSIUM 2.9 mmol/L (3.5-5.1); SODIUM SERUM 135 mmol/L (136-145); UREA NITROGEN, BLOOD 12 mg/dL (7-18)
[2024-06-08 18:09] LABS: ALANINE AMINOTRANSFERASE 18 U/L (12-78); ALBUMIN 4.2 g/dL (3.4-5.0); ALKALINE PHOSPHATASE 123 U/L (46-116); ASPARTATE AMINOTRANSFERASE 31 U/L (15-37); BILIRUBIN,DIRECT 2.7 mg/dL (0.0-0.2); BILIRUBIN,TOTAL 4.2 mg/dL (0.2-1.0); LIPASE 42 U/L (16-77); TOTAL PROTEIN, SERUM 7.8 g/dL (6.4-8.2)
[2024-06-08] MEDS ORDERED: HYDROMORPHONE 1 MG/1 ML DISP.SYRIN ONE (18:11)
[2024-06-08 18:12] LABS: ABG BASE EXCESS 0.3 mmol/L (-2.0-3.0); ABG OXYGEN SATURATION 97.1 % (94.0-98.0); ABG PCO2 40.4 mmHg (32.0-45.0); ABG PH 7.408 (7.350-7.450); ABG PO2 96.9 mmHg (83.0-108.0); ABG TOTAL HEMOGLOBIN 12.7 G/dL (12.0-16.0); COHb 0.3 % (0.5-1.5); O2Hb 96.8 % (94.0-97.0); SITE, ABG RIGHT RADIAL
[2024-06-08] MEDS ORDERED: POTASSIUM CL. PREMIX PERIPHER. 100 ML ONE (18:19)
[2024-06-08] MEDS: HYDROMORPHONE 1 MG/1 ML DISP.SYRIN IV ONE (18:19)
[2024-06-08 18:22] VITALS: O2SAT 99
[2024-06-08] MEDS: POTASSIUM CL. PREMIX PERIPHER. 50 ML IV SCH (18:30)
[2024-06-08] MEDS: IV NS 0.9% 500 ML BAG IV ONE (18:30)
[2024-06-08 19:49] LABS: EOSINOPHILS % (MANUAL) 2 % (0-4); LYMPHOCYTES % (MANUAL) 30 % (16-48); MONOCYTES % (MANUAL) 7 % (0-11.0); NEUTROPHILS % (MANUAL) 61 (42-76)
[2024-06-08 19:50] LABS: ANISOCYTOSIS 2+; PLATELET ESTIMATE DECRE; TARGET CELLS 1+
[2024-06-08 19:51] LABS: OVALOCYTES RARE
[2024-06-08 21:38] VITALS: O2SAT 100
[2024-06-08] MEDS ORDERED: Z GUARD REMEDY 4 OZ OINT TP PRN (23:00)
[2024-06-08] MEDS ORDERED: ONDANSETRON HCL/PF 4 MG/2 ML VIAL IVP PRN (23:00)
[2024-06-08 23:06] VITALS: O2SAT 98
[2024-06-08 23:30] VITALS: BP 110/69
[2024-06-08] MEDS: ALBUMIN 25% 200 ML IV ONE (23:38)
[2024-06-08 23:40] VITALS: BP 110/64; O2SAT 98
[2024-06-09] VITALS (62 sets, daily range): BP systolic 82–123; BP diastolic 35–87; TEMP 97.4–99.2; O2SAT 88–100
[2024-06-09] MEDS: ACETAMINOPHEN 325 MG TABLET PO PRN (00:41)
[2024-06-09] MEDS: NITROGLYCERIN 0.4 MG/TAB BOTTLE SL PRN (04:47)
[2024-06-09 08:08] LABS: CALCIUM, SERUM 9.4 mg/dL (8.5-10.1); CREATININE 1.3 mg/dL (0.6-1.3); PHOSPHORUS 2.4 mg/dL (2.5-4.9); POTASSIUM 4.1 mmol/L (3.5-5.1)
[2024-06-09 08:10] LABS: BASOPHILS % (AUTO) 0.4 % (0.0-2.0); EOSINOPHILS % (AUTO) 0.3 % (0.0-6.0); HEMATOCRIT 31 % (33-45); HEMOGLOBIN 10.7 g/dL (11.5-14.8); INR 1.5 (0.91-1.10); LYMPHOCYTES # (AUTO) 0.4 K/uL (0.8-4.8); LYMPHOCYTES % (AUTO) 7.9 % (20.0-44.0); MEAN CORPUSCULAR HEMOGLOBIN 38 PG (26.0-33.0); MEAN CORPUSCULAR HGB CONC 35 g/dl (31.0-36.0); MEAN CORPUSCULAR VOLUME 109 fL (82-100); MONOCYTES # (AUTO) 0.4 K/uL (0.1-1.30); MONOCYTES % (AUTO) 8.6 % (2.0-12.0); NEUTROPHILS # (AUTO) 3.7 K/uL (1.8-8.9); NEUTROPHILS % (AUTO) 82.8 % (43.0-81.0); PARTIAL THROMBOPLASTIN TIME 37.7 SEC (24.3-34.3); PROTHROMBIN TIME 15.5 SECS (9.2-11.1); RED BLOOD CELL COUNT(AUTO) 2.81 MIL/uL (4.0-5.2); RED CELL DISTRIBUTION WIDTH 20.5 % (11.5-15.0); WHITE BLOOD COUNT (AUTO) 4.5 K/uL (4.3-11.0)
[2024-06-09 08:21] LABS: THYROID STIMULATING HORMONE 21.42 uIU/mL (0.358-3.74)
[2024-06-09 08:27] LABS: PLATELET COUNT (AUTO) 42 K/uL (150-450)
[2024-06-09] MEDS: DICYCLOMINE HCL 10 MG CAPSULE PO SCH (09:50)
[2024-06-09] MEDS: MIDODRINE HCL (5MG) 5 MG TABLET PO SCH (09:50)
[2024-06-09] MEDS: PANTOPRAZOLE 40 MG TABLET.DR PO SCH (09:53)
[2024-06-09] MEDS: MULTIVIT W/MINERALS 1 TAB TABLET PO SCH (09:56)
[2024-06-09] MEDS: BUMETANIDE (1 MG) 1 MG TABLET PO SCH (10:17)
[2024-06-09 12:44] LABS: LYMPHOCYTES % (MANUAL) 6 % (16-48); MONOCYTES % (MANUAL) 3 % (0-11.0); NEUTROPHILS % (MANUAL) 91 (42-76); PLATELET ESTIMATE DECREASED
[2024-06-09 12:45] LABS: ANISOCYTOSIS 1+; STOMATOCYTES 1+; TARGET CELLS 1+
[2024-06-09] MEDS: K PHOS NEUTRAL 250 MG TABLET PO ONE (16:49)
[2024-06-09 16:54] LABS: PROTEIN, BODY FLUID 4.3 G/DL
[2024-06-09] MEDS: DIGOXIN 0.125 MG TABLET PO SCH (16:55)
[2024-06-09 19:27] LABS: APPEARANCE,SPUN,BODY FLUID CLEAR (CLEAR); TOTAL VOLUME,BODY FLUID 1200 mL
[2024-06-09 19:58] LABS: MACROPHAGES, BODY FLUID 37; POLYNUCLEAR, BODY FLUID 11 % (0-25); WBC, BODY FLUID 320 /cu. mm. (0-200)
[2024-06-09] MEDS: GABAPENTIN 100 MG CAPSULE PO SCH (22:17)
[2024-06-09] MEDS: ATORVASTATIN 40 MG TABLET PO SCH (22:17)
[2024-06-09] MEDS: MIRTAZAPINE 15 MG TABLET PO SCH (22:17)
[2024-06-10] VITALS (15 sets, daily range): BP systolic 83–116; BP diastolic 40–98; TEMP 97.5–98.8; O2SAT 94–100
[2024-06-10 05:07] LABS: HEPATITIS B SURFACE AB Non Reactive (.)
[2024-06-10] MEDS: LEVOTHYROXINE INJ 100 MCG VIAL IV SCH (07:51)
[2024-06-10 12:53] LABS: BASOPHILS % (AUTO) 0.9 % (0.0-2.0); EOSINOPHILS # (AUTO) 0.1 K/uL (0.0-0.7); EOSINOPHILS % (AUTO) 2.5 % (0.0-6.0); HEMATOCRIT 32 % (33-45); HEMOGLOBIN 10.6 g/dL (11.5-14.8); LYMPHOCYTES # (AUTO) 0.6 K/uL (0.8-4.8); LYMPHOCYTES % (AUTO) 12.6 % (20.0-44.0); MEAN CORPUSCULAR HEMOGLOBIN 37 PG (26.0-33.0); MEAN CORPUSCULAR HGB CONC 34 g/dl (31.0-36.0); MEAN CORPUSCULAR VOLUME 111 fL (82-100); MONOCYTES # (AUTO) 0.5 K/uL (0.1-1.30); MONOCYTES % (AUTO) 10.7 % (2.0-12.0); NEUTROPHILS # (AUTO) 3.2 K/uL (1.8-8.9); NEUTROPHILS % (AUTO) 73.3 % (43.0-81.0); PLATELET COUNT (AUTO) 55 K/uL (150-450); RED BLOOD CELL COUNT(AUTO) 2.87 MIL/uL (4.0-5.2); RED CELL DISTRIBUTION WIDTH 21.1 % (11.5-15.0); WHITE BLOOD COUNT (AUTO) 4.4 K/uL (4.3-11.0)
[2024-06-10 14:38] LABS: ANISOCYTOSIS 1+; EOSINOPHILS % (MANUAL) 2 % (0-4); LYMPHOCYTES % (MANUAL) 17 % (16-48); MONOCYTES % (MANUAL) 5 % (0-11.0); NEUTROPHILS % (MANUAL) 76 (42-76); PLATELET ESTIMATE DECREASED; TARGET CELLS 1+
[2024-06-10 14:39] LABS: STOMATOCYTES 1+
[2024-06-11] VITALS (8 sets, daily range): BP systolic 99–115; BP diastolic 46–65; TEMP 97.7–98.4; O2SAT 94–100
[2024-06-12] VITALS (7 sets, daily range): BP systolic 101–116; BP diastolic 51–69; TEMP 98.2–98.8; O2SAT 94–100
[2024-06-12 19:10] LABS: BASOPHILS % (AUTO) 0.8 % (0.0-2.0); EOSINOPHILS # (AUTO) 0.1 K/uL (0.0-0.7); EOSINOPHILS % (AUTO) 2.9 % (0.0-6.0); HEMATOCRIT 36 % (33-45); HEMOGLOBIN 12.3 g/dL (11.5-14.8); LYMPHOCYTES # (AUTO) 0.9 K/uL (0.8-4.8); LYMPHOCYTES % (AUTO) 20.8 % (20.0-44.0); MEAN CORPUSCULAR HEMOGLOBIN 37 PG (26.0-33.0); MEAN CORPUSCULAR HGB CONC 34 g/dl (31.0-36.0); MEAN CORPUSCULAR VOLUME 110 fL (82-100); MONOCYTES # (AUTO) 0.6 K/uL (0.1-1.30); MONOCYTES % (AUTO) 14.6 % (2.0-12.0); NEUTROPHILS # (AUTO) 2.5 K/uL (1.8-8.9); NEUTROPHILS % (AUTO) 60.9 % (43.0-81.0); PLATELET COUNT (AUTO) 65 K/uL (150-450); RED BLOOD CELL COUNT(AUTO) 3.31 MIL/uL (4.0-5.2); WHITE BLOOD COUNT (AUTO) 4.2 K/uL (4.3-11.0)
[2024-06-12 21:59] LABS: ANISOCYTOSIS 1+; EOSINOPHILS % (MANUAL) 3 % (0-4); LYMPHOCYTES % (MANUAL) 17 % (16-48); MONOCYTES % (MANUAL) 13 % (0-11.0); NEUTROPHILS % (MANUAL) 67 (42-76); PLATELET ESTIMATE DECREASED
[2024-06-12 22:00] LABS: OVALOCYTES RARE; TARGET CELLS 1+
[2024-06-13] VITALS: BP 97/55; TEMP 98.2; O2SAT 97
[2024-06-13 04:00] VITALS: BP 93/45; TEMP 98; O2SAT 98
[2024-06-13 04:12] VITALS: BP 100/60; TEMP 98; O2SAT 98
[2024-06-13 07:30] VITALS: BP 100/66; TEMP 98.1; O2SAT 98
[2024-06-13] MEDS: LEVOTHYROXINE SODIUM 50 MCG TABLET PO SCH (09:30)
[2024-06-13] MEDS: ALBUMIN 25% 50 GM in PREMIX 1 EA IV PRN (15:39)
[2024-06-13 17:44] VITALS: BP 104/66
== END 2024-06-13 20:30 | disposition home or self-care (01) | DRG 194 ==
LOC: ER 16:14 → ICU 20:53 → TELE 06-10 11:06 → MED 06-13 18:47
PROVIDERS: ADMIT Nurse Practitioner Family; ATTEND Internal Medicine
PROC: 5A1D70Z Performance of Urinary Filtration, Intermittent, Less than 6 Hours Per Day (ICD-10-PCS; principal; 2024-06-09)
PROC: 0W9G3ZZ Drainage of Peritoneal Cavity, Percutaneous Approach (ICD-10-PCS; 2024-06-09)
DX: I13.2 Hypertensive heart and chronic kidney disease with heart failure and with stage 5 chronic kidney disease, or end stage renal disease (principal); J96.01 Acute respiratory failure with hypoxia; I21.A1 Myocardial infarction type 2; D69.6 Thrombocytopenia, unspecified; J90 Pleural effusion, not elsewhere classified; N18.6 End stage renal disease; E87.1 Hypo-osmolality and hyponatremia; R18.8 Other ascites; I50.23 Acute on chronic systolic (congestive) heart failure; E11.22 Type 2 diabetes mellitus with diabetic chronic kidney disease; J96.02 Acute respiratory failure with hypercapnia; E03.9 Hypothyroidism, unspecified; E78.5 Hyperlipidemia, unspecified; E87.6 Hypokalemia; I25.10 Atherosclerotic heart disease of native coronary artery without angina pectoris; I48.91 Unspecified atrial fibrillation; Z99.2 Dependence on renal dialysis; E80.6 Other disorders of bilirubin metabolism; K74.60 Unspecified cirrhosis of liver; Z79.01 Long term (current) use of anticoagulants; Z66 Do not resuscitate; Z95.0 Presence of cardiac pacemaker; I08.0 Rheumatic disorders of both mitral and aortic valves; I25.2 Old myocardial infarction
CPT/HCPCS: 36415; 36600; 49083; 71045-TC; 80048-TC; 80061-TC; 80076-TC; 82105; 82803-TC; 83690-TC; 83735-TC; 84100-TC; 84439-TC; 84443-TC; 84484-TC; 85025-TC; 85730-TC; 86706; 87081-TC; 87340; 89051-TC; 90935-TC; 93970-TC; 94799-TC; 99082-TC; A4216; A4223; G0378; J1171; J2470; J3480; J7030; P9047